=== PATIENT | male | born 1965 | race Caucasian/White ===

== ENCOUNTER 2020-08-26 23:14 | Emergency (ER) | payer MEDICAID, SELFPAY ==
[2020-08-26 23:42] VITALS: BP 122/90; PULSE 67; RESP 16; TEMP 36.2; O2SAT 98; BMI 25.8
[2020-08-27 01:34] VITALS: RESP 16
--- NOTE | 2020-08-27 01:34 | PC.NURSE ---
PT IS SLEEPING AT THIS TIME.
[2020-08-27 01:49] VITALS: BP 116/82; PULSE 69; RESP 16
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
[2020-08-27 04:07] VITALS: RESP 16
== END 2020-08-27 05:44 | disposition home or self-care (01) ==
PROVIDERS: Emergency Provider Student in an Organized Health Care Education/Training Program
DX: F10.120 Alcohol abuse with intoxication, uncomplicated (principal); Y90.9 Presence of alcohol in blood, level not specified
CPT/HCPCS: 99284

== ENCOUNTER 2021-01-17 11:33 | Emergency (ER) | payer MEDICAID, SELFPAY ==
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
[2021-01-17 11:40] VITALS: BP 137/89; BP 148/68; PULSE 85; PULSE 92; RESP 18; TEMP 37.3; O2SAT 95; O2SAT 98; BMI 22.2
[2021-01-17] MEDS: levETIRAcetam 1,000 MG TABLET 1000 MG PO (12:14)
== END 2021-01-17 13:18 | disposition home or self-care (01) ==
PROVIDERS: Emergency Provider Emergency Medicine
DX: G40.309 Generalized idiopathic epilepsy and epileptic syndromes, not intractable, without status epilepticus (principal); Z79.899 Other long term (current) drug therapy
CPT/HCPCS: 99283

== ENCOUNTER 2021-03-15 16:12 | Emergency (ER) | payer MEDICAID, SELFPAY ==
[2021-03-15 16:18] VITALS: BP 112/62; PULSE 88; RESP 18; TEMP 36.7; O2SAT 97; BMI 21.7
[2021-03-15 16:53] LABS: Hematocrit 34.5 % (42-52); Hemoglobin 11.6 g/dl (14.0-18.0); Mean Corpuscular HGB Conc 33.6 g/dl (31.0-36.0); Mean Corpuscular Hemoglobin 29.4 pg (27.0-33.0); Mean Corpuscular Volume 87.3 fL (80-98); Mean Platelet Volume 8.7 fL (9.4-12.4); Platelet Count 250 X10*3/uL (160-400); Red Blood Count 3.95 X10*6/uL (4.60-5.80); Red Cell Distribution Width 12.7 % (11.0-16.0); White Blood Count 8.8 X10*3/uL (4.8-10.8)
[2021-03-15 17:25] LABS: Anion Gap 17 (12-20); Blood Urea Nitrogen 15 mg/dL (9-16); Carbon Dioxide 25 mmol/L (22-29); Chloride 100 mmol/L (96-108); Creatinine Clr Calc Pharmacy 59.1; Estimated Glomerular Filt Rate > 60; Glucose Random 94 mg/dL (60-115); Potassium 3.9 mmol/L (3.3-5.1); Sodium 138 mmol/L (135-145)
--- NOTE | 2021-03-15 18:44 | ED_ITS ---
HPI - GI Bleed General Chief complaint: Abdominal Pain Stated complaint: Rectal bleeding Time Seen by Provider: 03/15/21 18:44 Source: patient Mode of arrival: ambulatory Limitations: no limitations History of Present Illness HPI Narrative: patient alcoholic complaining of bright red blood since yesterday past 3-4 times small amount no blood clots brown stools no vomiting no abdominal pain no nausea no vomiting no abdominal distension Related Data Home Medications Medication Instructions Recorded Confirmed levetiracetam 500 mg PO BID 01/17/21 01/17/21 Allergies Allergy/AdvReac Type Severity Reaction Status Date / Time No Known Allergies Allergy Unverified 06/01/20 15:17 Review of Systems Review of Systems: Yes all other systems are reviewed and are negative [facility] Past Medical History Medical History ETOH abuse Social History Social History Advance Directives: No Advance Directives Information Provided: No Physical Exam Vital Signs: Vital Signs: Last Vital Signs Temp 98.1 F 03/15/21 16:18 Pulse 88 03/15/21 16:18 Resp 18 03/15/21 16:18 BP 112/62 03/15/21 16:18 Pulse Ox 97 03/15/21 16:18 Body Mass Index 21.7 Appearance: Alert. Oriented X3. No acute distress. ETOH+ Eyes: PERRLA, No Nystagmus ENT: Pharynx normal. Oral Mucosa moist Neck: Normal inspection. Neck supple. CVS: Normal heart rate and rhythm. Pulses normal. Respiratory: No respiratory distress. Equal air entry bilateral, no wheezing/rales/rhonchi Abdomen: Soft and nontender. Bowel sounds are present, no mass palpable, no CVA tenderness Rectal: brown stool guaiac negative no mass palpable Skin: Skin warm and dry. Normal skin color. Normal skin turgor. Extremities: No lower extremity edema. No calf tenderness Neuro: Oriented X 3. No motor deficit. stable gait MDM - GI Bleed MDM Narrative Medical decision making narrative: patient with bright red blood per rectum likely from hemorrhoids or lower GI bleed no abdominal pain H&H unstable guaiac is negative patient advised to follow with PCP for colonoscopy Lab Data Attestation: I reviewed the patient's lab results. Result diagrams: 03/15/21 16:48 03/15/21 16:48 Labs: Lab Results 03/15/21 03/15/21 03/15/21 Range/Units 16:48 16:48 19:13 WBC 8.8 (4.8-10.8) X10*3/uL RBC 3.95 L (4.60-5.80) X10*6/uL Hgb 11.6 L (14.0-18.0) g/dl Hct 34.5 L (42-52) % MCV 87.3 (80-98) fL MCH 29.4 (27.0-33.0) pg MCHC 33.6 (31.0-36.0) g/dl RDW 12.7 (11.0-16.0) % Plt Count 250 (160-400) X10*3/uL MPV 8.7 L (9.4-12.4) fL Absolute Nucleated RBC 0.000 (0.0-0.012) X10*3/uL Nucleated RBC % (auto) 0.0 (0.0-0.2) /100WBC Sodium 138 (135-145) mmol/L Potassium 3.9 (3.3-5.1) mmol/L Chloride 100 (96-108) mmol/L Carbon Dioxide 25 (22-29) mmol/L Anion Gap 17 (12-20) BUN 15 (9-16) mg/dL Creatinine 1.25 (0.5-1.4) mg/dL Estim Creat Clear Calc 59.1 Estimated GFR > 60 Random Glucose 94 (60-115) mg/dL Calcium 10.0 (8.4-10.2) mg/dL Stool Occult Blood NEGATIVE (NEGATIVE) Discharge Plan Discharge Clinical Impression: Bright red rectal bleeding Hemorrhoid Qualifiers: Hemorrhoid type: first degree Qualified Code(s): K64.0 - First degree hemorrhoids Patient Disposition: Elopement Instructions: Rectal Bleeding (ED) Additional Instructions: your bleeding is likely from hemorrhoids follow-up with your PCP avoid constipation Prescriptions: No Action levetiracetam 500 mg Tablet 500 mg PO BID RF: 0 Interventions: ED Discharge Assessment Last Done: 03/15/21 19:52 Discharge Date/Time: 03/15/21 19:53
[2021-03-15 19:18] LABS: OBS1 NEGATIVE (NEGATIVE)
[2021-03-15 19:19] LABS: OBS Int Ctl Valid YES
== END 2021-03-15 19:53 | disposition left against medical advice (07) ==
PROVIDERS: Emergency Provider Internal Medicine
DX: K64.0 First degree hemorrhoids (principal)
CPT/HCPCS: 36415; 80048; 82272; 85027; 99283

== ENCOUNTER 2021-04-28 17:59 | Emergency (ER) | payer MEDICAID, SELFPAY ==
[2021-04-28 18:03] VITALS: BP 156/101; PULSE 82; RESP 16; TEMP 36.8; O2SAT 97; BMI 27.7
--- NOTE | 2021-04-28 18:19 | PC.NURSE ---
WOUND CARE PROVIDE TO PT TO BY NURSE AND PT WAS SEEN [facility] BY STAFF.
== END 2021-04-28 19:00 | disposition left against medical advice (07) ==
PROVIDERS: Emergency Provider Emergency Medicine
DX: S80.211A Abrasion, right knee, initial encounter (principal); W19.XXXA Unspecified fall, initial encounter; F10.10 Alcohol abuse, uncomplicated; Y93.9 Activity, unspecified; Y92.9 Unspecified place or not applicable; Y99.9 Unspecified external cause status
CPT/HCPCS: 99283

== ENCOUNTER 2021-05-03 22:04 | Emergency (ER) | payer MEDICAID, SELFPAY ==
--- NOTE | ~2021-05-03 | XR_ITS ---
EXAMINATION: XR FOOT, LEFT CLINICAL INFORMATION: Pain and ecchymosis COMPARISON: None TECHNIQUE: AP, lateral, and oblique views of the left foot. FINDINGS: There is no fracture or dislocation. Alignment is anatomic. Joint spaces are maintained. Soft tissues are unremarkable. No ankle joint effusion. XR/XR foot LT min 3V IMPRESSION: No fracture or malalignment.
[2021-05-03 22:12] VITALS: BP 113/68; PULSE 83; RESP 16; TEMP 35.7; O2SAT 96; BMI 24.9
[2021-05-04 00:16] VITALS: BP 110/72; PULSE 82; RESP 16; TEMP 36.8; O2SAT 97
--- NOTE | 2021-05-04 01:44 | ED.GENADULT ---
HPI - General Adult General Chief complaint: ETOH/Substance Use Stated complaint: etoh Time Seen by Provider: 05/04/21 01:40 Source: patient and EMS Mode of arrival: EMS Limitations: no limitations History of Present Illness HPI narrative: 56 years old male history of alcohol abuse came in intoxicated by alcohol. Patient also requesting evaluation of left foot/left ankle pain patient do not remember having trauma or injury to the left foot/left ankle. Related Data Home Medications Medication Instructions Recorded Confirmed levetiracetam 500 mg tablet 500 mg PO BID 01/17/21 01/17/21 Allergies Allergy/AdvReac Type Severity Reaction Status Date / Time No Known Allergies Allergy Unverified 06/01/20 15:17 Review of Systems Review of Systems: All other systems are reviewed and are negative Constitutional: Reports as per HPI and Reports no additional constitutional complaints Eyes: Reports as per HPI and Reports no additional eye complaints Reports system reviewed and no additional complaints, except as documented Cardiovascular: Reports as per HPI and Reports no additional cardiovascular complaints Respiratory: Reports as per HPI and Reports no additional respiratory complaints Gastrointestinal: Reports as per HPI and Reports no additional gastrointestinal complaints Genitourinary: Reports no additional female genitourinary complaints Musculoskeletal: Reports no additional musculoskeletal complaints Skin/Breast: Reports system reviewed and no additional complaints, except as docu Psychiatric: Reports no additional psychiatric complaints Endocrine: Reports no additional endocrine complaints Hematologic/Lymphatic: Reports no additional hematologic/lymphatic complaints Allergic/Immunologic: Reports no additional allergic/immunologic complaints Reports system reviewed and no additional complaints, except as documented and Reports Abnormal speech present PMFSH Past Medical History Medical History ETOH abuse Social History Social History Advance Directives: No Advance Directives Information Provided: Yes Physical Exam Vital Signs: Vital Signs: Last Vital Signs Temp 98.3 F 05/04/21 00:16 Pulse 82 05/04/21 00:16 Resp 16 05/04/21 00:16 BP 110/72 05/04/21 00:16 Pulse Ox 97 05/04/21 00:16 Body Mass Index 24.9 Vital signs have been reviewed as appeared to be correct. Blood pressure normal. Heart rate normal. Respiration rate normal. Temperature normal. Oxygen saturation normal. Appearance: Alert. No acute distress. Head: Normal external exam. Normocephalic. Atraumatic. No Vazquez signs noted. No raccoon eyes noted Eyes: PERRLA. EOMI. Conjunctiva and sclera normal. Eyelids normal. ENT: TM's Normal. Pharynx normal. Uvula midline. Moist mucous membranes. No trismus noted. No drooling noted. No muffled voice noted. Neck: Normal inspection. Neck supple. FROM. No adenopathy. Thyroid Normal. No meningeal signs. No neck mass noted. CVS: Normal heart rate and rhythm. Heart sound normal. No murmurs noted. Pulses normal throughout. Respiratory: No respiratory distress. Painless inspiration. Breath sounds normal. No wheezes/rales/rhonchi noted. Chest nontender. No accessory muscle usage noted or decreased air movement noted. Abdomen: Soft and nontender. Bowel sounds normal in all 4 quadrants. No distention noted. No organomegaly noted. No visible injury noted. Back: No CVA tenderness. Full range of motion noted. Skin: Skin warm and dry. Normal skin color. Normal skin turgor. No rashes/lesions/lacerations noted. Extremities: Left foot/ankle with ecchymosis, slight tenderness over lateral aspect of her left foot and ankle, no deformity, no step-off, for range of motion, able to bear weight and ambulate. Neuro: Cranial nerve exam: II-XII are grossly intact No motor deficit. No sensory deficit. Reflexes normal. Course Course Course Narrative: Assessment and plan. Left foot contusion with no apparent fracture. Patient appears to be in alcohol intoxication will discharge when patient is sober or adult family members to pick him up. Discharge Plan Discharge Clinical Impression: Alcoholic intoxication Qualifiers: Complication of substance-induced condition: uncomplicated Qualified Code(s): F10.920 - Alcohol use, unspecified with intoxication, uncomplicated Contusion of foot, left Qualifiers: Encounter type: initial encounter Qualified Code(s): S90.32XA - Contusion of left foot, initial encounter Patient Disposition: Home, Self-Care Instructions: Alcohol Intoxication (ED), Foot Contusion (ED) Additional Instructions: Please consider detox. Thank you for choosing this emergency department for evaluation. Please follow-up with primary care physician as needed. Return to the emergency department for any new, concerning, or worsening symptoms. Prescriptions: No Action levetiracetam 500 mg Tablet 500 mg PO BID RF: 0 Referrals: Physician,Unknown [Physician] - 2 days Interventions: ED Discharge Assessment Last Done: 05/04/21 02:33 Discharge Date/Time: 05/04/21 02:33
== END 2021-05-04 02:33 | disposition home or self-care (01) ==
PROVIDERS: Emergency Provider Emergency Medicine
DX: F10.120 Alcohol abuse with intoxication, uncomplicated (principal); Y90.9 Presence of alcohol in blood, level not specified; S90.32XA Contusion of left foot, initial encounter; X58.XXXA Exposure to other specified factors, initial encounter; Y93.9 Activity, unspecified; Y92.9 Unspecified place or not applicable; Y99.9 Unspecified external cause status; F17.210 Nicotine dependence, cigarettes, uncomplicated
CPT/HCPCS: 73630; 99283; 99284

== ENCOUNTER 2021-05-08 23:18 | Emergency (ER) | payer MEDICAID, SELFPAY ==
[2021-05-08 23:27] VITALS: BP 102/71; PULSE 84; RESP 18; TEMP 36.3; O2SAT 97; BMI 25.8
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
[2021-05-09 00:20] VITALS: RESP 20
[2021-05-09] MEDS: LORazepam 2 MG/ML VIAL IM (00:20)
[2021-05-09] MEDS: Haloperidol Lactate 5 MG/ML VIAL IM (00:20)
[2021-05-09 00:35] VITALS: RESP 18
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
[2021-05-09 00:50] VITALS: RESP 18
[2021-05-09 01:05] VITALS: RESP 18
[2021-05-09 01:20] VITALS: RESP 16
[2021-05-09 06:01] VITALS: PULSE 70; RESP 16
== END 2021-05-09 08:07 | disposition home or self-care (01) ==
PROVIDERS: Emergency Provider Emergency Medicine
DX: F10.120 Alcohol abuse with intoxication, uncomplicated (principal); Y90.9 Presence of alcohol in blood, level not specified; S50.811A Abrasion of right forearm, initial encounter; X58.XXXA Exposure to other specified factors, initial encounter; R45.6 Violent behavior; F17.210 Nicotine dependence, cigarettes, uncomplicated; Y93.89 Activity, other specified; Y92.009 Unspecified place in unspecified non-institutional (private) residence as the place of occurrence of the external cause; Y99.9 Unspecified external cause status
CPT/HCPCS: 96372; 99285; 99291; J2060

== ENCOUNTER 2021-05-21 20:56 | Emergency (ER) | payer MEDICAID, SELFPAY ==
--- NOTE | ~2021-05-21 | CT_ITS ---
EXAMINATION: CT HEAD WITHOUT CONTRAST CLINICAL INFORMATION: Trauma. Fall. EtOH abuse. COMPARISON: 03/13/2020 and prior TECHNIQUE: Contiguous axial imaging was performed from the skull base to vertex without intravenous administration of contrast. This CT examination was performed using dose optimization techniques as appropriate, variously including the following: *Automated exposure control *Adjustment of mA and/or kV according to patient size (this includes techniques or standardized protocols for targeted exams where dose is matched to indication/reason for exam; i.e. extremities or head) *Use of iterative reconstruction technique DLP: 711 mGy-cm FINDINGS: Prior left craniotomy. Chronic encephalomalacia and gliosis in the left temporal lobe. Mild chronic microangiopathy unchanged. No acute territorial infarction. No acute hemorrhage. No abnormal intra-axial collection. No shift of midline structures. There is ex vacuo dilation of the left lateral ventricle. No acute fracture. The visualized sinuses and mastoid air cells are clear. CT/CT head/brain wo con IMPRESSION: No acute intracranial pathology. Chronic postoperative changes following left craniotomy with left temporoparietal encephalomalacia and gliosis.
--- NOTE | ~2021-05-21 | XR_ITS ---
Examination: XR hand wrist RT Indication: fall, pain, etoh Comparison: No pertinent prior studies are currently available for comparison. Technique: 5 plain film views the right hand and wrist. Findings: Carpal bones are normal anatomic alignment with no acute fracture or dislocation seen. Old healed fifth metacarpal fracture but no acute fracture or dislocation seen in the hand either. No radiopaque foreign body. XR/XR hand wrist RT Impression: No acute bony abnormality.
[2021-05-21 21:08] VITALS: BP 142/74; BP 154/116; PULSE 70; PULSE 82; RESP 16; TEMP 36.3; O2SAT 98; BMI 26.6
--- NOTE | 2021-05-21 21:28 | ED.ALCOHOL ---
HPI - Alcohol General Chief Complaint: Fall Stated Complaint: etoh Time Seen by Provider: 05/21/21 21:17 Source: patient and EMS Mode of arrival: EMS Limitations: other (Alcohol intoxication) History of Present Illness HPI narrative: Patient is brought to emergency room by EMS. Seems that the patient's neighbors heard that he fell, EMS was called. Patient complaining of right wrist pain, intoxicated, unable to provide any meaningful history. Patient is awake, alert, intoxicated, calm and cooperative at this time Related Data Home Medications Medication Instructions Recorded Confirmed levetiracetam 500 mg tablet 500 mg PO BID 01/17/21 01/17/21 Allergies Allergy/AdvReac Type Severity Reaction Status Date / Time No Known Allergies Allergy Unverified 06/01/20 15:17 Review of Systems Review of Systems: Constitutional : No Weight loss, No Fever, No Chills, No Night Sweats, No Fatigue, No Malaise ENT/Mouth : No Hearing loss, No Ear Pain, No Nasal Congestion, No Sinus Pain, No Hoarseness, No sore throat, No Rhinorrhea, No Swallowing Difficulty Eyes: No Eye Pain, No Swelling, No Redness, No Foreign Body, No Discharge, No Vision Changes Cardiovascular : No Chest Pain, No SOB, No Dyspnea on Exertion, No Orthopnea, No Edema, No Palpitations Respiratory : No Cough, No Sputum, No Wheezing, No Smoke Exposure, No Dyspnea Gastrointestinal : No Nausea, No Vomiting, No Diarrhea, No Constipation, No abdominal Pain, No Hematochezia, No Melena Genitourinary : no irregular bleeding, No Dysuria, No Urinary Frequency, No Hematuria, No Urinary Incontinence, No Urgency, No Flank Pain, No Urinary Flow Changes, No Hesitancy Musculoskeletal : Complaining of right wrist pain, No Myalgias, No Joint Swelling Skin : No Skin Lesions, No rash Neuro : No Weakness, No Numbness, No Paresthesias, No Loss of Consciousness, No Dizziness, No Headache Psych : No Anxiety/Panic, No Depression, denies SI or HI Heme/Lymph: No Bruising, No Bleeding,No Lymphadenopathy Endocrine : No Polyuria, No Polydipsia, No Temperature Intolerance PMFSH Past Medical History Medical History ETOH abuse Social History Social History Alcohol intake: current Alcohol intake frequency: 3 or more drinks per day Alcohol type: beer, wine and hard liquor Patient Tobacco Use Status: Current everyday Tobacco user Advance Directives: No Advance Directives Information Provided: No Physical Exam Vital Signs: Vital Signs: Last Vital Signs Temp 97.4 F 05/21/21 21:08 Pulse 82 05/21/21 21:08 Resp 16 05/21/21 21:08 BP 154/116 H 05/21/21 21:08 Pulse Ox 98 05/21/21 21:08 Body Mass Index 26.6 Const: Other: Appearance: Alert. Oriented X2. No acute distress. Eyes: Pupils equal, round and reactive to light. ENT: Pharynx normal. Neck: Normal inspection. Neck supple. No lymph nodes noted. No crepitus CVS: Normal heart rate and rhythm. Pulses normal. Normal S1 and S2 Respiratory: No respiratory distress. Breath sounds normal. No Wheezing. No rales Abdomen: Soft and nontender. No rigidity. No distention. good BS x4 Skin: Skin warm and dry. Normal skin color. Normal skin turgor. Extremities: No lower extremity edema. Patient is able to flex and extend the wrist, does not seem to be in pain when palpated over the wrist, able to open and close his hand, has a very small superficial laceration to the palm of the left hand, not bleeding Neuro: Oriented X 2. No motor deficit. No sensory deficit. Moving all extermities. No slurred speech. Course Course Course Narrative: Patient is intoxicated, head CT and x-ray showed no acute abnormalities. Patient will metabolize to freedom, and in the morning he will be discharged. Patient's brother works for the police department, requesting that we discharge the patient to him when medically cleared MDM - Alcohol Imaging Data Head CT: Radiologist's impression: Prior left craniotomy. Chronic encephalomalacia and gliosis in the left temporal lobe. Mild chronic microangiopathy unchanged. No acute territorial infarction. No acute hemorrhage. No abnormal intra-axial collection. No shift of midline structures. There is ex vacuo dilation of the left lateral ventricle. No acute fracture. The visualized sinuses and mastoid air cells are clear. CT/CT head/brain wo con IMPRESSION: No acute intracranial pathology. Chronic postoperative changes following left craniotomy with left temporoparietal encephalomalacia and gliosis. Wrist x-ray: Radiologist's impression: Findings: Carpal bones are normal anatomic alignment with no acute fracture or dislocation seen. Old healed fifth metacarpal fracture but no acute fracture or dislocation seen in the hand either. No radiopaque foreign body. XR/XR hand wrist RT Impression: No acute bony abnormality. Discharge Plan Discharge Clinical Impression: Alcohol intoxication, Contusion of right wrist Patient Disposition: Home, Self-Care Instructions: Alcohol Intoxication (ED) Additional Instructions: Please follow-up with your primary care physician tomorrow. If you have any worsening or new symptoms, please return to the emergency room or call 911 Prescriptions: No Action levetiracetam 500 mg Tablet 500 mg PO BID RF: 0
[2021-05-22 01:36] VITALS: BP 148/104; PULSE 80; RESP 16
--- NOTE | 2021-05-22 01:37 | PC.NURSE ---
PT HAS BEEN AMBULATORY TO BATHROOM X 2 WITH STEADY GAIT. PT AWAKE AND ALERT, AWARE OF SURROUNDINGS AND SPEAKING IN CLEAR, FULL SENTENCES. PT HAS BEEN GIVEN SODA AND SANDWICH, HAS NO TROUBLE SWALLOWING, NO VOMITING. 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 NO TREMORS OR DIAPHORESIS. [employer] ENCOURAGED TO HAVE PT RETURN TO ER IF TREMORS OR DIAPHORESIS.
== END 2021-05-22 02:00 | disposition home or self-care (01) ==
PROVIDERS: Emergency Provider Emergency Medicine
DX: F10.120 Alcohol abuse with intoxication, uncomplicated (principal); Y90.9 Presence of alcohol in blood, level not specified; S60.211A Contusion of right wrist, initial encounter; S61.412A Laceration without foreign body of left hand, initial encounter; W19.XXXA Unspecified fall, initial encounter; F17.210 Nicotine dependence, cigarettes, uncomplicated; Y93.9 Activity, unspecified; Y92.039 Unspecified place in apartment as the place of occurrence of the external cause; Y99.9 Unspecified external cause status
CPT/HCPCS: 70450; 73110; 73130; 99284

== ENCOUNTER 2021-05-29 19:28 | Emergency (ER) | payer MEDICAID, SELFPAY ==
--- NOTE | ~2021-05-29 | XR_ITS ---
EXAMINATION: 1. RIGHT ELBOW. 2. RIGHT FOREARM. CLINICAL INFORMATION: Pain. COMPARISON: Right elbow March 07, 2017 TECHNIQUE: 1. Right elbow. 3 views 2. Right forearm. 2 views. FINDINGS: 1. Right elbow. No fracture. No dislocation. Joint space is maintained. There is no joint effusion. There is a prominent spur at the olecranon insertion of the triceps tendon. 2. Right forearm. No fracture. No focal bone lesion or abnormal periosteal reaction. The wrist is unremarkable. There is no soft tissue abnormality. XR/XR forearm RT 2V IMPRESSION: 1. Right elbow. No acute abnormality. 2. Right forearm. No acute abnormality.
--- NOTE | ~2021-05-29 | XR_ITS ---
EXAMINATION: 1. RIGHT ELBOW. 2. RIGHT FOREARM. CLINICAL INFORMATION: Pain. COMPARISON: Right elbow March 07, 2017 TECHNIQUE: 1. Right elbow. 3 views 2. Right forearm. 2 views. FINDINGS: 1. Right elbow. No fracture. No dislocation. Joint space is maintained. There is no joint effusion. There is a prominent spur at the olecranon insertion of the triceps tendon. 2. Right forearm. No fracture. No focal bone lesion or abnormal periosteal reaction. The wrist is unremarkable. There is no soft tissue abnormality. XR/XR elbow RT 2V IMPRESSION: 1. Right elbow. No acute abnormality. 2. Right forearm. No acute abnormality.
[2021-05-29 19:36] VITALS: BP 95/50; PULSE 85; RESP 15; TEMP 37; O2SAT 96; BMI 21.9
--- NOTE | 2021-05-29 19:39 | ED_ITS ---
HPI - General Adult General Chief complaint: Extremity Injury, Upper Stated complaint: right side arm injury/etoh Time Seen by Provider: 05/29/21 19:32 Source: EMS Mode of arrival: EMS Limitations: no limitations History of Present Illness HPI narrative: 56-year-old male here with complaints of right forearm and elbow pain after an injury several days ago. The patient tells me he was lifting something heavy and felt pain in his arm. Of no the patient was seen here on May 21 with a similar complaint with negative x-rays. He was noted to be intoxicated at that time and was discharged home in the care of family. The patient tells me he did drink alcohol today but is unable to quantify. No additional substance use. No head injury or loss of consciousness. Related Data Home Medications Medication Instructions Recorded Confirmed lisinopril 20 1 tab PO DAILY 05/29/21 05/29/21 mg-hydrochlorothiazide 25 mg tablet omeprazole 20 mg capsule,delayed 1 cap PO BID 05/29/21 05/29/21 release Allergies Allergy/AdvReac Type Severity Reaction Status Date / Time No Known Allergies Allergy Unverified 06/01/20 15:17 Review of Systems Review of Systems: Yes all other systems are reviewed and are negative Constitutional: Constitutional: Reports no additional constitutional complaints, Denies body ache(s), Denies chills, Denies fever(s), Denies headache(s) and Denies weakness Eyes: Eyes: Reports no additional eye complaints and Denies change in vision ENT: Reports system reviewed and no additional complaints, except as documented, Denies dizziness, Denies headache(s), Denies nasal congestion, Denies nasal discharge and Denies neck pain Cardiovascular: Cardiovascular: Reports no additional cardiovascular complaints, Denies chest pain, Denies leg edema and Denies dyspnea Respiratory: Respiratory: Reports no additional respiratory complaints, Denies cough and Denies dyspnea Gastrointestinal: Gastrointestinal: Reports no additional gastrointestinal complaints, Denies abdominal pain, Denies diarrhea, Denies nausea and Denies vomiting Genitourinary: Genitourinary: Denies urinary incontinence Musculoskeletal: Musculoskeletal: Reports no additional musculoskeletal complaints, Denies back pain, Reports arthralgias, Denies joint swelling, Denies limited range of motion, Denies neck pain, Denies numbness and Denies tingling Integumentary/Breasts: Skin/Breast: Reports system reviewed and no additional complaints, except as docu and Denies rash Neurologic: Reports system reviewed and no additional complaints, except as documented, Denies Abnormal speech present, Denies dizziness, Denies headache(s), Denies numbness, Denies tingling and Denies weakness PMFSH Past Medical History Attestation statement: The following information was validated with the patient. Source: old records reviewed and nursing notes reviewed Medical History ETOH abuse Social History Social History Alcohol intake: unknown Patient Tobacco Use Status: Current everyday Tobacco user Use of substances other than those prescribed or required for medical reasons: No Advance Directives: No Advance Directives Information Provided: Yes Physical Exam Vital Signs: Vital Signs: Last Vital Signs Temp 98.6 F 05/29/21 19:36 Pulse 85 05/29/21 19:36 Resp 15 05/29/21 19:36 BP 95/50 L 05/29/21 19:36 Pulse Ox 96 05/29/21 19:36 Body Mass Index 21.9 Const: General: cooperative, healthy appearing, comfortable and no acute dis tress Orientation/consciousness: patient oriented x3 Limitations: no limitations HENMT: Head: Yes normal to inspection Ears: hearing grossly normal bilaterally General nose exam: Normal external nose present Face and sinus: Yes normal facial exam Mouth: Normal oral and palatal mucosa present Throat: Yes posterior oropharynx normal Eyes: General: appearance normal, both eyes and all related structures Pupils: Equal, round and reactive pupils present Neck: Neck: Yes normal visual inspection Chest: Chest palpation & inspection: normal inspection of the chest Resp: Effort & Inspection: normal respiratory effort Auscultation: clear to auscultation bilaterally Cardio: Rate: regular rate Rhythm: regular rhythm Peripheral pulses: Peripheral pulses 2+ throughout GI: Inspection: Yes normal to inspection Palpation (GI): Soft to palpation and nontender Auscultation: normal bowel sounds Back/Spine/Pelvis: Thoracic/Lumbar Spine: thoracic and lumbar spine normal to inspection Skin: General skin exam: no rashes or lesions noted Neuro: General: patient oriented x3, no focal motor deficits and normal sensation to monofilament Cranial nerves: Yes Equal, round and reactive pupils present Cognition (Neuro): normal cognition Speech: No Abnormal speech present Gait exam (Neuro): Normal gait present Motor exam (neuro): 5/5 motor strength present throughout Extrem: Other: Pain to the right lateral elbow and over the more proximal forearm with no obvious deformity or swelling. There is some ecchymosis noted along the medial aspect. Sensation is intact. Distal pulses palpated. Full range of motion. 5/5 strength General: Yes normal to inspection, Yes no pedal edema and Yes no calf tenderness Course Course Course Narrative: 56-year-old male here with complaints of right upper extremity pain with an injury that occurred several days ago with negative x-rays in the past. Continued pain since then. No new injury or trauma that the patient reports. Of note he was found wandering on the street and admits to several drinks. Transported via EMS for further eval Will check x-rays 0-x-ray show no acute abnormality. Patient admits to drinking several drinks prior to arrival. Clinically is sober. He walks with steady gait. He is tolerating p.o. he is alert and oriented. Attempted to contact family but unable to make contact with them. Therefore the patient was discharged home, Medical Decision Making Medical Records Medical records reviewed: Yes I reviewed the patient's medical records. Lab Data Lab results reviewed: Yes I reviewed the patient's lab results. Imaging Data right elbow/forearm xry: Attestation: I personally reviewed and interpreted this imaging study as follows: Radiologist's impression: Phill Adkins??56??M??1965 ? Allergy/Adv: No Known Allergies Close ED Discharge Packet 05/29/21 22:22 ER Physician Documentation 05/29/21 19:39 Elbow X-Ray 05/29/21 19:36 Foot X-Ray 05/04/21 01:40 Forearm X-Ray 05/29/21 19:36 Hand/Wrist X-Ray 05/21/21 21:[address] 05/21/21 21:23 Launch?Image [address] [address] XRay Report Signed Patient: Phill Adkins MR#: [id number] : 1965 Acct:[id number] Age/Sex: 56 / M ADM Date: 05/29/21 Loc: HO.ED Attending Dr: Ordering Physician: Reta Wyman NP Date of Service: 05/29/21 Procedure(s): XR forearm RT 2V Accession Number(s): [id number] cc: Reta Wyman NP~ EXAMINATION: 1. RIGHT ELBOW. 2. RIGHT FOREARM. CLINICAL INFORMATION: Pain. COMPARISON: Right elbow March 07, 2017? TECHNIQUE: 1. Right elbow. 3 views 2. Right forearm. 2 views.? FINDINGS: 1. Right elbow. No fracture. No dislocation. Joint space is maintained. There is no joint effusion. There is a prominent spur at the olecranon insertion of the triceps tendon. 2. Right forearm. No fracture. No focal bone lesion or abnormal periosteal reaction. The wrist is unremarkable. There is no soft tissue abnormality.? XR/XR forearm RT 2V IMPRESSION: ? 1. Right elbow. No acute abnormality. 2. Right forearm. No acute abnormality.? Discharge Plan Discharge Clinical Impression: Sprain of forearm, right Patient Disposition: Home, Self-Care Instructions: Wrist Sprain (ED) Additional Instructions: X-rays show no fractures Motrin or Tylenol for pain as needed Prescriptions: No Action omeprazole 20 mg capsule,delayed release(DR/EC) 1 cap PO BID RF: 0 lisinopril-hydrochlorothiazide 20-25 mg tablet 1 tab PO DAILY RF: 0 Referrals: Physician,Unknown [Primary Care Provider] - 2 days Interventions: ED Discharge Assessment Last Done: 05/29/21 22:26 Discharge Date/Time: 05/29/21 22:27
[2021-05-29] MEDS: Acetaminophen 325 MG TABLET 650 MG PO (22:13)
== END 2021-05-29 22:27 | disposition home or self-care (01) ==
PROVIDERS: Emergency Provider Emergency Medicine Emergency Medical Services
DX: S43.401A Unspecified sprain of right shoulder joint, initial encounter (principal); M79.601 Pain in right arm; X50.0XXA Overexertion from strenuous movement or load, initial encounter; Y93.9 Activity, unspecified; Y92.9 Unspecified place or not applicable; Y99.9 Unspecified external cause status; F17.200 Nicotine dependence, unspecified, uncomplicated; Z79.899 Other long term (current) drug therapy; Z71.6 Tobacco abuse counseling
CPT/HCPCS: 73070; 73090; 99283; 99284

== ENCOUNTER 2021-06-01 20:50 | Emergency (ER) | payer MEDICAID, SELFPAY ==
--- NOTE | ~2021-06-01 | CT_ITS ---
EXAMINATION: CONTRAST-ENHANCED CT OF THE CHEST; CONTRAST-ENHANCED CT OF THE ABDOMEN AND PELVIS INDICATION: Status post fall COMPARISON: 12/04/2015 TECHNIQUE: 85 mL Omnipaque 350 IV contrast was utilized. Multidetector helical imaging was performed through the chest, abdomen, and pelvis. Coronal and sagittal reformatted images were created at the technologist workstation. DLP: 609 mGy-cm DOSE LOWERING TECHNIQUES: This CT examination was performed using dose optimization techniques as appropriate, variously including the following: - Automated exposure control - Adjustment of mA and/or kV according to patient size (this includes techniques or standardized protocols for targeted exams were dose is matched to indication/reason for exam; i.e. extremities or head) - Use of iterative reconstruction technique FINDINGS: Chest: Parenchymal detail of the lungs is limited in some regions due to respiratory motion artifact. Subsegmental atelectasis is present in the bilateral lower lobes. Trace right pleural effusion is noted. No pneumothorax. Thyroid gland is not adequately assessed due to motion artifact. There are subcentimeter mediastinal lymph nodes within the range of normal variation. Cardiac size is within normal limits; no pericardial effusion. The aorta is unremarkable. No axillary lymphadenopathy is present. Nondisplaced lateral right fifth rib fracture. Minimally displaced lateral right seventh rib fracture. Nondisplaced lateral right eighth rib fracture. Subacute/chronic healing fracture of the posterior right 10th rib. Abdomen/Pelvis: The liver is homogeneous in attenuation without intrahepatic biliary ductal dilatation. The gallbladder appears contracted. The spleen, pancreas, and adrenal glands are within normal limits. Bilateral nephrograms are symmetric. No hydronephrosis. Subcentimeter hypodensity in the left kidney favors a cyst. No obstructing renal or ureteral calculi are present. The urinary bladder is unremarkable. The prostate and seminal vesicles are unremarkable. There is a thick-walled appearance of the distal duodenum/proximal jejunum. The appendix is suspected to be collapsed. No free fluid or free air is identified. Mild scattered atherosclerotic calcification noted. No retroperitoneal or pelvic lymphadenopathy is seen. Endplate osteophytes are noted most prominently in the lower lumbar spine. CT/CT abdomen pelvis w con IMPRESSION: 1. Fractures of the lateral right fifth, seventh, and eighth ribs. 2. Trace right pleural effusion suggesting hemothorax in the setting of rib fractures. 3. Thick-walled appearance of the distal duodenum/proximal jejunum, suggesting nonspecific inflammation.
--- NOTE | ~2021-06-01 | XR_ITS ---
EXAMINATION: XR RIBS, RIGHT CLINICAL INFORMATION: Status post fall COMPARISON: Chest radiograph 03/13/2020 TECHNIQUE: Single view chest with 3 views of the right ribs were obtained. FINDINGS: There is scarring or atelectasis present at the left lung base. Lungs are otherwise clear. No consolidation, pneumothorax, or pleural effusion. The cardiomediastinal silhouette and pulmonary vasculature are normal. There are minimally displaced fractures involving seventh and eighth posterolateral right ribs. There are also possibly nondisplaced fractures involving fifth and possibly sixth ribs. There is an old healed fracture with sclerosis involving the left posterolateral 11th rib. XR/XR ribs RT min 3V w CXR1V IMPRESSION: Multiple nondisplaced acute rib fractures as described above.
[2021-06-01 21:03] VITALS: BP 118/77; PULSE 68; RESP 15; TEMP 36; O2SAT 99; BMI 20.9
[2021-06-01 22:00] VITALS: PULSE 68; RESP 15
--- NOTE | 2021-06-01 22:34 | ED_ITS ---
HPI - Fall General Chief Complaint: Fall Stated Complaint: FALL ETOH Time Seen by Provider: 06/01/21 22:34 Source: patient Mode of arrival: EMS Limitations: no limitations History of Present Illness HPI Narrative: Patient intoxicated fell outside liquor store hitting her right ribs to the concrete complaining of pain in the right lower ribs no shortness of breath no other injuries no abdominal pain no headache no neck pain Related Data Home Medications Medication Instructions Recorded Confirmed lisinopril 20 1 tab PO DAILY 05/29/21 05/29/21 mg-hydrochlorothiazide 25 mg tablet omeprazole 20 mg capsule,delayed 1 cap PO BID 05/29/21 05/29/21 release Previous Rx's Medication Instructions Recorded tramadol 50 mg tablet 50 mg PO Q6H PRN #20 tab 06/02/21 Allergies Allergy/AdvReac Type Severity Reaction Status Date / Time No Known Allergies Allergy Unverified 06/01/20 15:17 Review of Systems Review of Systems: Yes all other systems are reviewed and are negative PMFSH Past Medical History Medical History ETOH abuse Social History Social History Alcohol intake: current Alcohol intake frequency: 3 or more drinks per day Alcohol type: beer, wine and hard liquor Patient Tobacco Use Status: Current everyday Tobacco user Use of substances other than those prescribed or required for medical reasons: Unknown Advance Directives: No Advance Directives Information Provided: No Physical Exam Vital Signs: Vital Signs: Last Vital Signs Temp 97.6 F 06/02/21 03:00 Pulse 76 06/02/21 03:00 Resp 16 06/02/21 03:00 BP 116/71 06/02/21 03:00 Pulse Ox 96 06/02/21 03:00 Body Mass Index 20.9 Const: General: no acute distress, well developed and intoxicated appearing Nutritional Appearance: average body habitus Orientation/consciousness: patient oriented x3 HENMT: Head: Yes normocephalic and Yes atraumatic Eyes: General: appearance normal, both eyes and all related structures Neck: Neck: Yes normal visual inspection and No tender Chest: Chest palpation & inspection: normal inspection of the chest, normal palpation of entire chest wall, no crepitus and localized rib tenderness with anteroposterior compression (Right lower ribs) Chest/axillae images: 1. Tenderness in right lower ribs Resp: Effort & Inspection: normal respiratory effort Auscultation: clear to auscultation bilaterally Cardio: Palpation: normal PMI Rate: regular rate Rhythm: regular rhythm Heart sounds: S1 normal heart sound present and S2 normal heart sound present GI: Inspection: Yes normal to inspection Palpation (GI): Soft to palpation and nontender Back/Spine/Pelvis: Back: No back tenderness Cervical Spine: cervical ROM normal Thoracic/Lumbar Spine: No thoracic spinal tenderness and No lumbar spinal tenderness Neuro: General: patient oriented x3 and no focal motor deficits MDM - Fall MDM Narrative Medical decision making narrative: Patient s/p mechanical fall with 3 right ribs fracture with slight effusion saturating 99% at room air, comfortable as such CT abdomen negative will discharge the patient home patient was given 1 L of normal saline for sodium of 127 asymptomatic hyponatremia likely from alcohol use Lab Data Attestation: I reviewed the patient's lab results. Result diagrams: 06/01/21 23:35 06/01/21 23:35 Labs: Lab Results 06/01/21 06/01/21 06/01/21 Range/Units 23:35 23:35 23:35 WBC 5.2 (4.8-10.8) X10*3/uL RBC 3.97 L (4.60-5.80) X10*6/uL Hgb 11.9 L (14.0-18.0) g/dl Hct 33.5 L (42-52) % MCV 84.4 (80-98) fL MCH 30.0 (27.0-33.0) pg MCHC 35.5 (31.0-36.0) g/dl RDW 12.2 (11.0-16.0) % Plt Count 259 (160-400) X10*3/uL MPV 8.9 L (9.4-12.4) fL Immature Gran % (Auto) 0.6 H (0.0-0.4) % Neut % (Auto) 52.7 (45-73) % Lymph % (Auto) 25.4 (20-40) % Menard % (Auto) 15.6 H (2-11) % Eos % (Auto) 4.6 H (0-4) % Baso % (Auto) 1.1 (0-2) % Lymph # (Auto) 1.3 (1.2-4.9) X10*3/uL Menard # (Auto) 0.8 (0.1-1.2) X10*3/uL Eos # (Auto) 0.2 (0.0-0.4) X10*3/uL Baso # (Auto) 0.1 (0.0-0.2) X10*3/uL Abs Immat Gran (auto) 0.03 (0.00-0.03) X10*3/uL Absolute Neuts (auto) 2.8 (2.0-8.3) X10*3/uL Absolute Nucleated RBC 0.000 (0.0-0.012) X10*3/uL Nucleated RBC % (auto) 0.0 (0.0-0.2) /100WBC Sodium 127 L (135-145) mmol/L Potassium 4.1 (3.3-5.1) mmol/L Chloride 91 L (96-108) mmol/L Carbon Dioxide 27 (22-29) mmol/L Anion Gap 13 (12-20) BUN 52 H D (9-16) mg/dL Creatinine 1.45 H (0.5-1.4) mg/dL Estim Creat Clear Calc 48.5 Estimated GFR 51 Random Glucose 112 (60-115) mg/dL Calcium 9.1 D (8.4-10.2) mg/dL Total Bilirubin 0.4 (0.0-1.0) mg/dL Direct Bilirubin 0.2 (0.0-0.5) mg/dL AST 65 H (5-37) U/L ALT 55 H (0-40) U/L Alkaline Phosphatase 116 (39-117) U/L Total Protein 7.4 (6.5-8.0) g/dL Albumin 4.3 (3.5-5.0) g/dL Ethyl Alcohol 263 mg/dL Discharge Plan Discharge Clinical Impression: Ribs, multiple fractures Qualifiers: Encounter type: initial encounter Fracture type: closed Laterality: right Quali fied Code(s): S22.41XA - Multiple fractures of ribs, right side, initial encounter for closed fracture Patient Disposition: Home, Self-Care Instructions: Rib Fracture (ED) Additional Instructions: Tylenol/tramadol for pain Stop drinking alcohol Report to ER if increase in pain or shortness of breath Prescriptions: New tramadol 50 mg tablet 50 mg PO Q6H PRN (Reason: pain) Qty: 20 RF: 0 No Action omeprazole 20 mg capsule,delayed release(DR/EC) 1 cap PO BID RF: 0 lisinopril-hydrochlorothiazide 20-25 mg tablet 1 tab PO DAILY RF: 0 Interventions: ED Discharge Assessment Last Done: 06/02/21 02:52
[2021-06-01 23:39] LABS: Basophils Absolute Auto 0.1 X10*3/uL (0.0-0.2); Basophils Percent Auto 1.1 % (0-2); Eosinophils Absolute Auto 0.2 X10*3/uL (0.0-0.4); Eosinophils Percent Auto 4.6 % (0-4); Hematocrit 33.5 % (42-52); Hemoglobin 11.9 g/dl (14.0-18.0); Imm Gran Abs Auto 0.03 X10*3/uL (0.00-0.03); Imm Gran Pct Auto 0.6 % (0.0-0.4); Lymphocytes Absolute Auto 1.3 X10*3/uL (1.2-4.9); Lymphocytes Percent Auto 25.4 % (20-40); MANUAL DIFF FLAG NO; Mean Corpuscular HGB Conc 35.5 g/dl (31.0-36.0); Mean Corpuscular Volume 84.4 fL (80-98); Mean Platelet Volume 8.9 fL (9.4-12.4); Monocytes Absolute Auto 0.8 X10*3/uL (0.1-1.2); Monocytes Percent Auto 15.6 % (2-11); Neutrophils Absolute Auto 2.8 X10*3/uL (2.0-8.3); Neutrophils Percent Auto 52.7 % (45-73); Platelet Count 259 X10*3/uL (160-400); Red Blood Count 3.97 X10*6/uL (4.60-5.80); Red Cell Distribution Width 12.2 % (11.0-16.0); White Blood Count 5.2 X10*3/uL (4.8-10.8)
[2021-06-01 23:58] LABS: Ethanol 263 mg/dL
[2021-06-02] VITALS: BP 121/68; PULSE 68; RESP 15; TEMP 36; O2SAT 99
[2021-06-02] LABS: Alanine Aminotransferase 55 U/L (0-40); Albumin Level 4.3 g/dL (3.5-5.0); Alkaline Phosphatase 116 U/L (39-117); Anion Gap 13 (12-20); Aspartate Amino Transferase 65 U/L (5-37); Bilirubin Direct 0.2 mg/dL (0.0-0.5); Bilirubin Total 0.4 mg/dL (0.0-1.0); Blood Urea Nitrogen 52 mg/dL (9-16); Calcium 9.1 mg/dL (8.4-10.2); Carbon Dioxide 27 mmol/L (22-29); Chloride 91 mmol/L (96-108); Creatinine Clr Calc Pharmacy 48.5; Estimated Glomerular Filt Rate 51; Glucose Random 112 mg/dL (60-115); Potassium 4.1 mmol/L (3.3-5.1); Sodium 127 mmol/L (135-145); Total Protein 7.4 g/dL (6.5-8.0)
[2021-06-02] MEDS: iohexoL 350 MG/ML 100 ML INFUS..BTL 85 ML IV (00:47)
[2021-06-02] MEDS: 0.9 % Sodium Chloride 1,000 ML 999 ML IVCONT (02:00)
[2021-06-02 03:00] VITALS: BP 116/71; PULSE 76; RESP 16; TEMP 36.4; O2SAT 96
[2021-06-02 04:00] VITALS: RESP 14
== END 2021-06-02 05:33 | disposition home or self-care (01) ==
PROVIDERS: Emergency Provider Internal Medicine
DX: S22.41XA Multiple fractures of ribs, right side, initial encounter for closed fracture (principal); R07.81 Pleurodynia; W01.0XXA Fall on same level from slipping, tripping and stumbling without subsequent striking against object, initial encounter; Y93.9 Activity, unspecified; Y92.480 Sidewalk as the place of occurrence of the external cause; Y99.9 Unspecified external cause status; F17.200 Nicotine dependence, unspecified, uncomplicated; Z71.6 Tobacco abuse counseling; Z79.899 Other long term (current) drug therapy
CPT/HCPCS: 36415; 71101; 71260; 74177; 80048; 80076; 82077; 85025; 96360; 99284; 99285; Q9967

== ENCOUNTER 2021-06-02 23:46 | Emergency (ER) | payer MEDICAID, SELFPAY ==
[2021-06-03] VITALS: BP 122/75; BP 96/59; PULSE 65; PULSE 86; RESP 16; TEMP 36.2; O2SAT 97; BMI 21.1
--- NOTE | 2021-06-03 00:06 | ED_ITS ---
HPI - Alcohol General Chief Complaint: ETOH/Substance Use Stated Complaint: etoh Time Seen by Provider: 06/03/21 00:06 Source: patient Mode of arrival: EMS Limitations: altered mental status History of Present Illness HPI narrative: found in street intoxicated brought in by EMS after police called him. [place] in [place] [facility] [place] complaint: alcohol intoxication Last drink: Hours (ago) Amount of alcohol consumed: a lot Previous visits for alcohol intoxication: Yes Recent trauma: Yes Associated symptoms: denies other symptoms Treatments prior to arrival: none Related Data Home Medications Medication Instructions Recorded Confirmed lisinopril 20 1 tab PO DAILY 05/29/21 05/29/21 mg-hydrochlorothiazide 25 mg tablet omeprazole 20 mg capsule,delayed 1 cap PO BID 05/29/21 05/29/21 release Previous Rx's Medication Instructions Recorded tramadol 50 mg tablet 50 mg PO Q6H PRN #20 tab 06/02/21 Allergies Allergy/AdvReac Type Severity Reaction Status Date / Time No Known Allergies Allergy Unverified 06/01/20 15:17 Review of Systems Review of Systems: Yes Unobtainable due to mental status Neurologic: Denies Sensory deficit (Neuro) [facility] Past Medical History Medical History ETOH abuse Social History Social History Alcohol intake: current Alcohol intake frequency: 3 or more drinks per day Alcohol type: beer, wine and hard liquor Patient Tobacco Use Status: Current everyday Tobacco user Advance Directives: No Physical Exam Vital Signs: Vital Signs: Last Vital Signs Temp 97.1 F 06/03/21 00:00 Pulse 58 06/03/21 02:34 Resp 16 06/03/21 02:34 BP 95/60 06/03/21 02:34 Pulse Ox 96 06/03/21 02:34 Body Mass Index 21.1 Const: Other: thin frail male very intoxicated Nutritional Appearance: malnourished Limitations: altered mental status HENMT: Head: Yes normal to inspection Ears: external ears normal General nose exam: Normal external nose present Mouth: Normal oral and palatal mucosa present and oropharynx normal Throat: Yes posterior oropharynx normal Eyes: General: appearance normal, both eyes and all related structures Neck: Other: supple Neck: Yes normal visual inspection Chest: Chest palpation & inspection: normal inspection of the chest Resp: Auscultation: clear to auscultation bilaterally Cardio: Jugular venous distension: no JVD Rate: regular rate Rhythm: regular rhythm Heart sounds: S1 normal heart sound present and S2 normal heart sound present GI: Inspection: Yes normal to inspection Palpation (GI): Soft to palpation, nontender and No hepatosplenomegaly present Auscultation: normal bowel sounds : General: Yes no CVA tenderness Back/Spine/Pelvis: Back: no CVA tenderness Skin: General skin exam: no rashes or lesions noted Neuro: Cranial nerves: Yes CN's II-XII intact bilaterally Motor exam (neuro): 5/5 motor strength present throughout Sensory Exam: No Sensory deficit (Neuro) Extrem: General: Yes normal to inspection Psych: Appearance: grossly normal Course Reevaluation(s) Reevaluation #1: Patient walking at baseline will dc home Time: 06:16 Discharge Plan Discharge Clinical Impression: Alcoholic intoxication Patient Disposition: Home, Self-Care Instructions: Alcohol Intoxication (ED) Prescriptions: No Action omeprazole 20 mg capsule,delayed release(DR/EC) 1 cap PO BID RF: 0 lisinopril-hydrochlorothiazide 20-25 mg tablet 1 tab PO DAILY RF: 0 tramadol 50 mg tablet 50 mg PO Q6H PRN (Reason: pain) Qty: 20 RF: 0 Referrals: Physician,Unknown [Primary Care Provider] - 1 week
--- NOTE | 2021-06-03 00:48 | PC.NURSE ---
pt is currently sleeping, respirations even and unlabored, in no apparent distress at this time
[2021-06-03 02:34] VITALS: BP 95/60; PULSE 58; RESP 16; O2SAT 96
--- NOTE | 2021-06-03 04:27 | PC.NURSE ---
pt ambulated to the bathroom with steady gait
[2021-06-03 06:38] VITALS: BP 99/68; PULSE 69; RESP 16; O2SAT 97
== END 2021-06-03 06:40 | disposition home or self-care (01) ==
PROVIDERS: Emergency Provider Emergency Medicine
DX: F10.129 Alcohol abuse with intoxication, unspecified (principal); Y90.9 Presence of alcohol in blood, level not specified; Z79.899 Other long term (current) drug therapy; Z71.41 Alcohol abuse counseling and surveillance of alcoholic
CPT/HCPCS: 99284

== ENCOUNTER 2021-07-04 18:38 | Emergency (ER) | payer MEDICAID, SELFPAY ==
[2021-07-04 19:05] VITALS: BP 131/79; BP 139/84; PULSE 88; PULSE 98; RESP 20; TEMP 36.6; O2SAT 95; BMI 22.4
--- NOTE | 2021-07-04 19:05 | ED.ALCOHOL ---
HPI - Alcohol General Chief Complaint: ETOH/Substance Use Stated Complaint: ETOH Time Seen by Provider: 07/04/21 19:05 History of Present Illness HPI narrative: Patient 56 years old positive history of ETOH. Denies any suicidal homicidal ideation. Has no complaints. Positive ETOH today. Patient found in a local supermarket. Related Data Home Medications Medication Instructions Recorded Confirmed lisinopril 20 1 tab PO DAILY 05/29/21 05/29/21 mg-hydrochlorothiazide 25 mg tablet omeprazole 20 mg capsule,delayed 1 cap PO BID 05/29/21 05/29/21 release Previous Rx's Medication Instructions Recorded tramadol 50 mg tablet 50 mg PO Q6H PRN #20 tab 06/02/21 Allergies Allergy/AdvReac Type Severity Reaction Status Date / Time No Known Allergies Allergy Verified 07/04/21 19:32 Review of Systems Review of Systems: Positive ETOH no specific complaints No nausea no vomiting no diaphoresis Yes all other systems are reviewed and are negative PMFSH Past Medical History Attestation statement: The following information was validated with the patient. Medical History ETOH abuse Social History Social History Alcohol intake: current Alcohol intake frequency: 3 or more drinks per day Alcohol type: beer, wine and hard liquor Patient Tobacco Use Status: Current everyday Tobacco user Advance Directives: No Advance Directives Information Provided: No Physical Exam Vital Signs: Vital Signs: Last Vital Signs Temp 97.9 F 07/04/21 19:05 Pulse 88 07/04/21 19:05 Resp 20 07/04/21 19:05 BP 131/79 07/04/21 19:05 Pulse Ox 95 07/04/21 19:05 Body Mass Index 22.4 Appearance: Alert. Oriented X3. No acute distress. Eyes: Pupils equal, round and reactive to light. ENT: Pharynx normal. Neck: Normal inspection. Neck supple. No lymph nodes noted. No crepitus CVS: Normal heart rate and rhythm. Pulses normal. Normal S1 and S2 Respiratory: No respiratory distress. Breath sounds normal. No Wheezing. No rales Abdomen: Soft and nontender. No rigidity. No distention. good BS x4 Skin: Skin warm and dry. Normal skin color. Normal skin turgor. Extremities: No lower extremity edema. Neurovascular intact to all extremities. No Lacerations. No Rash Neuro: Oriented X 3. No motor deficit. No sensory deficit. Moving all extermities. No slurred speech MDM - Alcohol MDM Narrative Medical decision making narrative: Well-appearing no acute distress. Patient clinically sober. Ambulatory here in the emergency department. Will discharge patient home. Differential Diagnosis Differential diagnosis: Likely alcohol intoxication Medical Records Attestation: I reviewed the patient's medical records. Lab Data Attestation: I reviewed the patient's lab results. Labs: Lab Results 07/04/21 Range/Units 19:02 POC Glucose 110 (60-115) mg/dL Discharge Plan Discharge Clinical Impression: Alcoholic intoxication Patient Disposition: Home, Self-Care Instructions: Alcohol Intoxication (ED) Prescriptions: No Action omeprazole 20 mg capsule,delayed release(DR/EC) 1 cap PO BID RF: 0 lisinopril-hydrochlorothiazide 20-25 mg tablet 1 tab PO DAILY RF: 0 tramadol 50 mg tablet 50 mg PO Q6H PRN (Reason: pain) Qty: 20 RF: 0
[2021-07-04 19:06] LABS: Glucose, Whole Blood 110 mg/dL (60-115)
--- NOTE | 2021-07-04 19:39 | MHC.RECOVSUP ---
? Reason for consult Recovery Support o Current location: 22h o Identified substance use concern: alcohol - Support ? Intervention: <del>o</del> <del>ATS</del> <del>bed</del> <del>search</del> <del>started/completed/in</del> <del>process</del> <del>o</del> <del>MAT</del> <del>started</del> <del>or</del> <del>to</del> <del>be</del> <del>started</del> <del>o</del> <del>Community</del> <del>resources</del> <del>provided</del> <del>o</del> <del>Harm</del> <del>reduction</del> <del>discussion</del> ? Plan: <del>o</del> <del>Referral</del> <del>to</del> <del>[facility]</del> <del>o</del> <del>Bed</del> <del>search</del> <del>in</del> <del>progress</del> <del>to</del> <del>o</del> <del>Follow</del> <del>up</del> <del>tomorrow</del> <del>o</del> <del>Patient</del> <del>awaiting</del> <del>crisis</del> <del>evaluation</del> <del>o</del> <del>Patient</del> <del>to</del> <del>follow</del> <del>up</del> <del>with</del> <del>[facility]</del> <del>after</del> <del>discharge</del> ? Additional information:Refused service
== END 2021-07-04 20:03 | disposition home or self-care (01) ==
PROVIDERS: Emergency Provider Emergency Medicine Emergency Medical Services
DX: F10.129 Alcohol abuse with intoxication, unspecified (principal); Y90.9 Presence of alcohol in blood, level not specified
CPT/HCPCS: 82947; 99282; 99284

== ENCOUNTER 2022-02-10 22:07 | Emergency (ER) | payer MEDICAID, SELFPAY ==
--- NOTE | ~2022-02-10 | CT_ITS ---
EXAMINATION: CT HEAD WITHOUT CONTRAST CLINICAL INFORMATION: Fall, intoxicated COMPARISON: 05/21/2021 TECHNIQUE: Contiguous axial imaging was performed from the skull base to vertex without intravenous administration of contrast. This CT examination was performed using dose optimization techniques as appropriate, variously including the following: *Automated exposure control *Adjustment of mA and/or kV according to patient size (this includes techniques or standardized protocols for targeted exams where dose is matched to indication/reason for exam; i.e. extremities or head) *Use of iterative reconstruction technique FINDINGS: Prior left craniotomy. There is subjacent left temporoparietal encephalomalacia. Chavira-white differentiation is otherwise well maintained. No evidence of acute large vessel territory ischemia. No acute intracranial hemorrhage. Chronic high density dural thickening along the left frontal cortex, series 2 image , present previously and unchanged.. The ventricles and sulci are similar in configuration to the prior study. Chronic left parietal soft tissue swelling. The mastoid air cells and visualized portions of the paranasal sinuses are well aerated. CT/CT head/brain wo con IMPRESSION: No acute intracranial pathology. Prior left craniotomy with subjacent left temporoparietal encephalomalacia similar to the prior study.
[2022-02-10 22:17] VITALS: BP 134/72; BP 160/104; PULSE 105; PULSE 94; RESP 20; TEMP 37.1; O2SAT 87; O2SAT 98; BMI 21.7
--- NOTE | 2022-02-10 23:13 | ED_ITS ---
HPI - Alcohol General Chief Complaint: ETOH/Substance Use Stated Complaint: ETOH Time Seen by Provider: 02/10/22 23:13 Source: patient Mode of arrival: EMS History of Present Illness HPI narrative: 56-year-old male who is homeless is brought in by EMS after he sustained fall with no LOC. Patient states he has been drinking tonight and drinks frequently. Patient then goes on to state that his brother is the global chief experience officer and yet he is still homeless. Related Data Home Medications Medication Instructions Recorded Confirmed lisinopril 20 1 tab PO DAILY 05/29/21 05/29/21 mg-hydrochlorothiazide 25 mg tablet omeprazole 20 mg capsule,delayed 1 cap PO BID 05/29/21 05/29/21 release Previous Rx's Medication Instructions Recorded tramadol 50 mg tablet 50 mg PO Q6H PRN #20 tab 06/02/21 Allergies Allergy/AdvReac Type Severity Reaction Status Date / Time No Known Allergies Allergy Verified 07/04/21 19:32 Review of Systems Review of Systems: Pertinent positives and negatives as stated in HPI 10 point review of systems is otherwise negative. PMFSH Past Medical History Source: nursing notes reviewed Medical History ETOH abuse Social History Social History Alcohol intake: current Alcohol intake frequency: 3 or more drinks per day Alcohol type: beer, wine and hard liquor Patient Tobacco Use Status: Current everyday Tobacco user Advance Directives: No Advance Directives Information Provided: No Physical Exam ED Vital Signs: Vital Signs - 24 hr 02/10/22 22:17 02/11/22 01:09 02/11/22 02:00 Temperature 98.8 F 98.8 F Pulse Rate 94 84 Respiratory Rate 20 16 16 Blood Pressure 160/104 H 135/78 Pulse Oximetry 87 L 95 98 02/11/22 04:00 Temperature Pulse Rate 96 Respiratory Rate 16 Blood Pressure 131/90 H Pulse Oximetry 97 BMI result Body Mass Index 21.7 VITAL SIGNS: Reviewed. GENERAL: Chronic drinker, smells like alcohol, in no acute distress. HEAD: Normocephalic/atraumatic EYES: PERRLA, EOMI EARS: Ext canals without abnormality OROPHARYNX: no oral lesions noted, posterior pharynx clear LUNGS: Normal breath sounds. No adventitious sounds or accessory muscle use. SpO2<96> on room air, the documented 87% is in erroneous finding. CARDIOVASCULAR: Regular rate and rhythm without noted murmurs ABDOMEN: Soft, non-tender, non-distended with bowel sounds. MUSCULOSKELETAL: No tenderness, deformities, or effusions noted on gross inspection. EXTREMITIES: No cyanosis, clubbing or edema; abrasion to the left forearm SKIN: Inspection of the skin reveals no rashes NEUROLOGIC: Alert and oriented x 4. Strength and sensation to light touch were grossly intact x 4. Course Course Course Narrative: 56-year-old male with history and clinical presentation alcohol use disorder, alcohol intoxication currently, with fall and will get a CT of the head. Review of all investigations negative for acute findings, patient is tolerating oral intake in discharged home at this time. Discharge Plan Discharge Clinical Impression: Alcoholic intoxication, Alcohol dependence, Fall Patient Disposition: Home, Self-Care Instructions: Alcohol Dependence (ED), Alcohol Intoxication (ED), Fall Prevention for Older Adults (ED) Additional Instructions: Follow-up with your primary care provider. And resume all home medications as prescribed. Prescriptions: No Action omeprazole 20 mg capsule,delayed release(DR/EC) 1 cap PO BID 0RF lisinopril-hydrochlorothiazide 20-25 mg tablet 1 tab PO DAILY 0RF tramadol 50 mg tablet 50 mg PO Q6H PRN (Reason: pain) Qty: 20 0RF
[2022-02-11 01:09] VITALS: BP 135/78; PULSE 84; RESP 16; TEMP 37.1; O2SAT 95
[2022-02-11 02:00] VITALS: RESP 16; O2SAT 98
[2022-02-11 04:00] VITALS: BP 131/90; PULSE 96; RESP 16; O2SAT 97
--- NOTE | 2022-02-11 09:28 | PC.NURSE ---
Pt is awake, alert and oriented x3 at this time. He ambulates with a steady gait.
[2022-02-11 09:29] VITALS: BP 121/92; PULSE 110; RESP 18; O2SAT 96
== END 2022-02-11 09:32 | disposition home or self-care (01) ==
PROVIDERS: Emergency Provider Student in an Organized Health Care Education/Training Program
DX: F10.229 Alcohol dependence with intoxication, unspecified (principal); Y90.9 Presence of alcohol in blood, level not specified; R51.9 Headache, unspecified; Z79.899 Other long term (current) drug therapy
CPT/HCPCS: 70450; 99283; 99284